=== PATIENT | female | born 1965 | race Two or more races ===

== ENCOUNTER 2017-12-12 11:51 | Emergency (ER) | payer MEDICAID ==
[~2017-12-12] VITALS: Ht 152.4 cm; Wt 83.0 kg
[2017-12-12 11:55] VITALS: Ht 152.4 cm; Wt 83.0 kg
[2017-12-12 14:50] LABS: BASOPHIL % 0.4 % (0-2); PLATELET COUNT 219 x10^3mcL (130-400); RED CELL DISTRIBUTION WIDTH 13.7 % (11.5-14.5)
[2017-12-12 14:53] LABS: UA SPECIFIC GRAVITY <=1.005 (1.005-1.035); microscopic required? YES; urine erythrocyte 1+ (NEGATIVE)
[2017-12-12 15:01] LABS: ALKALINE PHOSPHATASE 96 U/L (46-116); ALT/SGPT 29 U/L (14-59); AMYLASE 28 U/L (25-115); AST/SGOT 20 U/L (15-37); BILIRUBIN TOTAL 0.3 mg/dL (0.20-1.00); CALCIUM 9.2 mg/dL (8.5-10.1); CARBON DIOXIDE 30.9 mmol/L (21-32); CREATININE SERUM 0.7 mg/dL (0.6-1.0); GFR1 > 60 mL/min; GLUCOSE SERUM 85 mg/dL (74-106); LIPASE 63 IU/L (73-393); TOTAL PROTEIN, SERUM 7.6 g/dL (6.4-8.2)
[2017-12-12 15:11] LABS: CHOLESTEROL 253 mg/dL (<200)
[2017-12-12 15:15] LABS: CHLORIDE SERUM 99 mmol/L (98-107); POTASSIUM SERUM 4.2 mmol/L (3.5-5.1); SODIUM SERUM 140 mmol/L (136-145)
[2017-12-12 16:21] VITALS: BP 128/74
== END 2017-12-12 16:21 | disposition home or self-care (01) ==
LOC: ED 11:51
PROVIDERS: Emergency Medicine
DX: R10.13 Epigastric pain (principal); R10.11 Right upper quadrant pain; K76.0 Fatty (change of) liver, not elsewhere classified; M54.89 Other dorsalgia; E78.00 Pure hypercholesterolemia, unspecified
CPT/HCPCS: 83880; J1885; J7030; Q0092

== ENCOUNTER 2020-05-03 11:29 | Emergency (ER) | payer SELFPAY ==
[~2020-05-03] VITALS: Ht 154.9 cm; Wt 81.6 kg
[2020-05-03 11:43] VITALS: Ht 154.9 cm; Wt 81.6 kg
[2020-05-03 14:01] VITALS: BP 115/55
== END 2020-05-03 14:01 | disposition home or self-care (01) ==
LOC: ED 11:29
DX: S49.82XA Other specified injuries of left shoulder and upper arm, initial encounter (principal); S79.812A Other specified injuries of left hip, initial encounter; S39.92XA Unspecified injury of lower back, initial encounter; S89.82XA Other specified injuries of left lower leg, initial encounter; W17.89XA Other fall from one level to another, initial encounter; Y93.89 Activity, other specified; Y92.89 Other specified places as the place of occurrence of the external cause; Y99.8 Other external cause status
CPT/HCPCS: J1885